=== PATIENT | female | born 1985 | race Caucasian/White ===

== ENCOUNTER → 2017-08-09 | Outpatient (CLI) | payer MEDICAID ==
--- NOTE | 2017-08-09 13:09 | XR ---
EXAMINATION TYPE: XR chest 2V DATE OF EXAM: 08/09/2017 COMPARISON: NONE HISTORY: Shortness of breath, rule out tuberculosis for school TECHNIQUE: Frontal and lateral views of the chest are obtained. FINDINGS: There is no focal air space opacity, pleural effusion, or pneumothorax seen. The cardiac silhouette size is within normal limits. The osseous structures are intact. IMPRESSION: No acute cardiopulmonary process.
== END | disposition home or self-care (01) ==
LOC: RADXRMAIN 09:57
PROVIDERS: ATTEND Internal Medicine
DX: R06.02 Shortness of breath (principal)
CPT/HCPCS: 71046

== ENCOUNTER → 2021-03-16 | Outpatient (CLI) | payer MEDICAID, OTHER | END | disposition home or self-care (01) | LOC: LABWHC1 07:55 | PROVIDERS: ATTEND Emergency Medicine | DX: U07.1 COVID-19 (principal) | CPT/HCPCS: 87635 ==

== ENCOUNTER → 2022-01-10 | Outpatient (CLI) | payer BC ==
--- NOTE | 2022-01-11 17:12 | MM ---
Reason for Exam: Screening (asymptomatic). Patient History: Patient used Hormonal Contraceptives for 2 years. 08/31/2010, Cancelled Left US Localization on the left side. 08/31/2010, Cancelled Right US Localization on the right side. Maternal grandmother had breast cancer, age 45. Maternal cousin had breast cancer, age 37. Last menstrual period: 12/26/2021 Risk Values: Mago 5 year model risk: 0.2%. NCI Lifetime model risk: 6.9%. Tissue Density: The breast tissue is extremely dense which could obscure a lesion on mammography. Findings: Analyzed By CAD. There is an oval density within the inferior lateral aspect right breast craniocaudal view may be a skin lesion. Continuous nodule could be considered. Additional workup is recommended. Compression view is recommended. Standard mediolateral view is recommended. Overall Assessment: Incomplete: need additional imaging evaluation, BI-RAD 0 Management: Diagnostic Mammogram of the right breast. A negative mammogram report should not preclude additional follow up of suspicious palpable abnormalities. Patient should continue monthly self breast exam. A clinical breast exam by your physician is recommended on an annual basis and results should be correlated with mammographic findings. Electronically signed and approved by: Shekhar Valderrama D.O. Radiologis
== END | disposition home or self-care (01) ==
LOC: RADMAMWWP 15:43
PROVIDERS: ATTEND Obstetrics & Gynecology
DX: Z12.31 Encounter for screening mammogram for malignant neoplasm of breast (principal)
CPT/HCPCS: 77063; 77067

== ENCOUNTER → 2022-01-17 | Outpatient (CLI) | payer BC ==
--- NOTE | 2022-01-17 14:13 | MM ---
Reason for Exam: Additional evaluation requested from abnormal screening. Last screening mammogram was performed less than 1 month ago. Patient History: Menarche at age 13. Premenopausal. Patient used Hormonal Contraceptives for 2 years. MG pre op needle loc RT on the Right side. 08/31/2010, Cancelled Left US Localization on the left side. 08/31/2010, Cancelled Right US Localization on the right side. Maternal grandmother had breast cancer, age 45. Maternal cousin had breast cancer, age 37. Last menstrual period: 12/28/2021 Risk Values: Mago 5 year model risk: 0.3%. NCI Lifetime model risk: 9.2%. Tissue Density: Right: The breast tissue is heterogeneously dense. This may lower the sensitivity of mammography. Findings: Analyzed By CAD. A mole or accessory nipple inferior right breast is marked and corresponds to the earlier mammographic abnormality. No suspicious mammographic findings. Overall Assessment: Benign, BI-RAD 2 Management: Screening Mammogram of both breasts in 1 year. A clinical breast exam by your physician is recommended on an annual basis and results should be correlated with mammographic findings. This exam should not preclude additional follow-up of suspicious palpable abnormalities. Results were given to the patient verbally at the time of exam. Electronically signed and approved by: Shekhar Valderrama D.O. Radiologis
== END | disposition home or self-care (01) ==
LOC: RADMAMWWP 13:22
PROVIDERS: ATTEND Obstetrics & Gynecology
DX: R92.8 Other abnormal and inconclusive findings on diagnostic imaging of breast (principal); Z80.3 Family history of malignant neoplasm of breast
CPT/HCPCS: 77061; 77065

== ENCOUNTER 2023-01-10 04:34 | Emergency (ER) | payer BC ==
[2023-01-10 04:55] VITALS: RESP 16; TEMP 97.6
[2023-01-10] MEDS ORDERED: SODIUM CHLORIDE 0.9% 500 ML 500 ML IV STA (05:47)
[2023-01-10] MEDS ORDERED: METOCLOPRAMIDE 5 MG/ML 2 ML VIAL IVP STA (05:47)
[2023-01-10] MEDS ORDERED: MECLIZINE 12.5 MG TAB PO STA (05:47)
--- NOTE | 2023-01-10 05:48 | ED ---
General Adult HPI - General Source: patient Mode of arrival: ambulatory Limitations: no limitations <Pedro Vergara - Last Filed: 01/10/23 07:05> <Liang Awan - Last Filed: 01/10/23 07:54> - General Chief complaint: Dizziness Stated complaint: Dizziness, Light Headed Time Seen by Provider: 01/10/23 05:27 - History of Present Illness Initial comments: Dictation was produced using [employer] dictation software. please excuse any grammatical, word or spelling errors. Chief Complaint: 37-year-old female no significant past medical history presents to the ER for acute on chronic vertigo History of Present Illness: Patient is 37-year-old female she denies any significant medical history. She's been dealing with use of vertigo. States that her symptoms are usually mild and she can typically perform her activities of daily living. Today she got up in the middle the night at around 2:30 and use the restroom. She felt significantly vertiginous. She felt dizzy and lightheaded. She apparently is not able to go to work due to severity of her symptoms. Denies any headache. She been dealing with this intimately for years. She was told by her [employer] significant other to come to the ER to get a computed tomography scan of the brain. Patient denies any other neurologic deficits. She feels as though her symptoms are worse with position changes. States that it resolves if she lay still for several minutes. Denies any vomiting. The ROS documented in this emergency department record has been reviewed and confirmed by me. Those systems with pertinent positive or negative responses have been documented in the HPI. All other systems are other negative and/or noncontributory. (Pedro Vergara) - Related Data Previous Rx's Medication Instructions Recorded predniSONE [Deltasone] 20 mg PO DAILY 3 Days tab 02/02/16 Meclizine [Antivert] 25 mg PO TID PRN 7 Days #21 tab 01/10/23 Metoclopramide HCl [Reglan] 5 mg PO BID PRN 7 Days #14 tab 01/10/23 Allergies Allergy/AdvReac Type Severity Reaction Status Date / Time No Known Allergies Allergy Verified 01/10/23 04:45 Review of Systems ROS Other: All systems not noted in ROS Statement are negative. <Pedro Vergara - Last Filed: 01/10/23 07:05> ROS Other: All systems not noted in ROS Statement are negative. <Liang Awan - Last Filed: 01/10/23 07:54> ROS Statement: Those systems with pertinent positive or pertinent negative responses have been documented in the HPI. Past Medical History Past Medical History: No Reported History History of Any Multi-Drug Resistant Organisms: None Reported Additional Past Surgical History / Comment(s): lumpectomy bilateral breasts Past Psychological History: No Psychological Hx Reported Smoking Status: Never smoker Past Alcohol Use History: Occasional Past Drug Use History: None Reported <Pedro Vergara - Last Filed: 01/10/23 07:05> General Exam Limitations: no limitations <Pedro Vergara - Last Filed: 01/10/23 07:05> - General Exam Comments Initial Comments: PHYSICAL EXAM: General Impression: Alert and oriented x3, not in acute distress HEENT: Normocephalic atraumatic, extra-ocular movements intact, pupils equal and reactive to light bilaterally, mucous membranes moist. Cardiovascular: Heart regular rate and rhythm Chest: Able to complete full sentences, no retractions, no tachypnea Abdomen: abdomen soft, non-tender, non-distended, no organomegaly Musculoskeletal: Pulses present and equal in all extremities, no peripheral edema Motor: no focal deficits noted Neurological: CN II-XII grossly intact, no focal motor or sensory deficits noted, symptoms reproduced with head turning while supine position when going from right to left head turning and also with supine to sitting Skin: Intact with no visualized rashes Psych: Normal affect and mood (Pedro Vergara) Course Vital Signs 01/10/23 01/10/23 04:41 05:26 Temperature 97.6 F Pulse Rate 75 66 Respiratory 16 16 Rate Blood Pressure 130/86 115/85 O2 Sat by Pulse 99 99 Oximetry Medical Decision Making - Lab Data Result diagrams: 01/10/23 05:43 01/10/23 05:43 <Pedro Vergara - Last Filed: 01/10/23 07:05> - Lab Data Result diagrams: 01/10/23 05:43 01/10/23 05:43 <Liang Awan - Last Filed: 01/10/23 07:54> - Medical Decision Making Was pt. sent in by a medical professional or institution (, PA, COMPRESSOR ENGINEER, urgent ca re, hospital, or [facility]...) When possible be specific @ -No Did you speak to anyone other than the patient for history (EMS, parent, family, police, friend...)? What history was obtained from this source @ -No Did you review nursing and triage notes (agree or disagree)? Why? @ -I reviewed and agree with nursing and triage notes Were old charts reviewed (outside hosp., previous admission, EMS record, old EKG, old radiological studies, urgent care reports/EKG's, [facility] records)? Report findings @ -No old charts were reviewed Differential Diagnosis (chest pain, altered mental status, abdominal pain women, abdominal pain men, vaginal bleeding, musculoskeletal, weakness, fever, dyspnea, syncope, headache, dizziness, GI bleed, back pain, seizure, CVA, palpatations, mental health)? @ -Differential Dizziness: Benign paroxysmal positional Vertigo, Menieres disease, otitis media, acoustic neuroma, vertebrobasilar insufficiency, cerebellar stroke, encephalitis, hypovolemic, arrhythmia, coronary artery syndrome, anemia, this is not meant to be an all-inclusive list EKG interpreted by me (3pts min.). @ -None done X-rays interpreted by me (1pt min.). @ -None done CT interpreted by me (1pt min.). @ -Pending U/S interpreted by me (1pt. min.). @ -None done What testing was considered but not performed or refused? (CT, X-rays, U/S, lab s)? Why? @ -None What meds were considered but not given or refused? Why? @ -None Did you discuss the management of the patient with other professionals (professionals i.e. , PA, COMPRESSOR ENGINEER, lab, RT, psych nurse, social media sr strategy manager, brass molder helper, teacher, public records officer, onsite case manager)? Give summary @ -No Was smoking cessation discussed for >3mins.? @ -No Was critical care preformed (if so, how long)? @ -No Were there social determinants of health that impacted care today? How? (Homelessness, low income, unemployed, alcoholism, drug addiction, transportation, low edu. Level, literacy, decrease access to med. care, fdc, rehab)? @ -No Was there de-escalation of care discussed even if they declined (Discuss DNR or withdrawal of care, Hospice)? DNR status @ -No What co-morbidities impacted this encounter? (DM, HTN, Smoking, COPD, CAD, Cancer, CVA, ARF, Chemo, Hep., AIDS, mental health diagnosis, sleep apnea, morbid obesity)? @ -None Was patient admitted / discharged? Hospital course, mention meds given and route, prescriptions, significant lab abnormalities, going to OR and other pertinent info. @ -37 revealed female no significant past medical history presents with chief complaint of acute on chronic positional vertigo. Vital signs are stable. Physical examination is benign. Patient has no high-risk features. Does not have clinical symptoms suggesting central nervous system pathology. She has fatigable vertigo that is exacerbated with position changes. She does not have any stroke risk factors.Laboratory evaluation is unremarkable. CBC, metabolic panel within normal limits. Urine hCG is negative. Patient treated with vertigo medications. Patient care is signed out to Dr. Awan at 7:00 AM Undiagnosed new problem with uncertain prognosis? @ -No Drug Therapy requiring intensive monitoring for toxicity (Heparin, Nitro, Insulin, Cardizem)? @ -No Were any procedures done? @ -No Diagnosis/symptom? Acute, or Chronic, or Acute on Chronic? Uncomplicated (without systemic symptoms) or Complicated (systemic symptoms)? @ -Benign positional vertigo Side effects of treatment? @ -No Exacerbation, Progression, or Severe Exacerbation? @ -No Poses a threat to life or bodily function? How? (Chest pain, USA, OR, pneumonia, PE, COPD, DKA, ARF, appy, cholecystitis, CVA, Diverticulitis, Homicidal, Suicidal, threat to staff... and all critical care pts) @ -No (Pedro Vergara) Patient signed out to me pending results of imaging. Briefly, presents with history of positional vertigo with no new symptoms. States it was somewhat worse this time but symptoms drastically improved with vertigo medications in the emergency department. Patient's laboratory studies were unremarkable. Patient's pending CT imaging. CT imaging is interpreted by myself reveals no obvious acute intracranial process. I discussed results with the patient. She remains improved. Vital signs remained within acceptable limits. No new neuro symptoms. Able to ambulate." It is safer to be discharged home with close follow-up with her PCP. She was in agreement this plan. I will provide the patient with a prescription for Reglan, meclizine. I instructed the patient to follow up with their PCP in the next 1-3 days. I explained that the patient should return to the emergency department if they experience any worsening symptoms. Strict return precautions were discussed with the patient. The patient expressed understanding of these instructions. I answered all questions that the patient had. The patient was discharged home in good condition with their prescriptions and follow up information. (Liang Awan) - Lab Data Lab Results 01/10/23 01/10/23 01/10/23 Range/Units 05:43 05:43 05:43 WBC 6.1 (3.8-10.6) k/uL RBC 4.12 (3.80-5.40) m/uL Hgb 12.6 (11.4-16.0) gm/dL Hct 37.0 (34.0-46.0) % MCV 89.8 (80.0-100.0) fL MCH 30.5 (25.0-35.0) pg MCHC 33.9 (31.0-37.0) g/dL RDW 15.8 H (11.5-15.5) % Plt Count 212 (150-450) k/uL MPV 8.1 Neutrophils % 60 % Lymphocytes % 32 % Monocytes % 5 % Eosinophils % 1 % Basophils % 0 % Neutrophils # 3.6 (1.3-7.7) k/uL Lymphocytes # 2.0 (1.0-4.8) k/uL Monocytes # 0.3 (0-1.0) k/uL Eosinophils # 0.1 (0-0.7) k/uL Basophils # 0.0 (0-0.2) k/uL Sodium 135 L (137-145) mmol/L Potassium 4.0 (3.5-5.1) mmol/L Chloride 102 (98-107) mmol/L Carbon Dioxide 24 (22-30) mmol/L Anion Gap 9 mmol/L BUN 15 (7-17) mg/dL Creatinine 0.79 (0.52-1.04) mg/dL Est GFR (CKD-EPI)AfAm >90 (>60 ml/min/1.73 sqM) Est GFR (CKD-EPI)NonAf >90 (>60 ml/min/1.73 sqM) Glucose 93 (74-99) mg/dL Calcium 9.5 (8.4-10.2) mg/dL Urine HCG, Qual Not Detected (Not Detectd) Disposition <Pedro Vergara - Last Filed: 01/10/23 07:05> Is patient prescribed a controlled substance at d/c from ED?: No Time of Disposition: 07:45 <Liang Awan - Last Filed: 01/10/23 07:54> Clinical Impression: Positional vertigo Disposition: HOME SELF-CARE Condition: Good Instructions (If sedation given, give patient instructions): Dizziness (ED), Benign Paroxysmal Positional Vertigo (ED) Prescriptions: Meclizine [Antivert] 25 mg PO TID PRN 7 Days #21 tab PRN Reason: Vertigo Metoclopramide HCl [Reglan] 5 mg PO BID PRN 7 Days #14 tab PRN Reason: Nausea Referrals: None,Stated [Primary Care Provider] - 1-2 days Forms: Area PCPs
[2023-01-10 06:05] LABS: Basophils % (A) 0 %; Eosinophils # (A) 0.1 k/uL (0-0.7); Eosinophils % (A) 1 %; HGB 12.6 gm/dL (11.4-16.0); Lymphocytes % (A) 32 %; MCH 30.5 pg (25.0-35.0); MCHC 33.9 g/dL (31.0-37.0); MCV 89.8 fL (80.0-100.0); Mean Platelet Volume 8.1; Monocytes # (A) 0.3 k/uL (0-1.0); Monocytes % (A) 5 %; Neutrophils # (A) 3.6 k/uL (1.3-7.7); Neutrophils % (A) 60 %; Platelet Count 212 k/uL (150-450); RBC 4.12 m/uL (3.80-5.40); RDW 15.8 % (11.5-15.5); WBC 6.1 k/uL (3.8-10.6)
[2023-01-10 06:14] LABS: African American GFR (CKD) >90 (>60 ml/min/1.73 sqM); Anion Gap 9 mmol/L; Blood Urea Nitrogen 15 mg/dL (7-17); Calcium 9.5 mg/dL (8.4-10.2); Carbon Dioxide 24 mmol/L (22-30); Chloride 102 mmol/L (98-107); Glucose 93 mg/dL (74-99); Non-African American GFR(CKD) >90 (>60 ml/min/1.73 sqM); Sodium 135 mmol/L (137-145)
--- NOTE | 2023-01-10 07:37 | CT ---
EXAMINATION TYPE: CT brain wo con DATE OF EXAM: 01/10/2023 COMPARISON: None INDICATION: Positional vertigo DLP: 1100.4 mGycm, Automated exposure control for dose reduction was used. CONTRAST: None CT of the brain is performed utilizing 3 mm thick sections through the posterior fossa and 3 mm thick sections through the remaining calvarium. Study is performed within 24 hours of arrival to the hosp [place]. No abnormal hyperdensity is present to suggest an acute intracranial hemorrhage. No mass lesion is evident. No acute infarcts are evident. Ventricles and sulci are appropriate for the patient age. Paranasal sinuses and mastoid air cells within the [id number] are clear. Semicircular canals as vi sualized are normal. IMPRESSION: 1. No acute intracranial process. Follow-up MRI can be performed as clinically indicated.
[2023-01-10 08:23] VITALS: BP 103/72; PULSE 67
== END 2023-01-10 08:18 | disposition home or self-care (01) ==
LOC: EC 04:34
DX: H81.13 Benign paroxysmal vertigo, bilateral (principal)
CPT/HCPCS: 99284; 96361 ×2; 36415; 80048; 85025; 81025; 70450; 96374; J2765; 96360